=== PATIENT | male | born 1950 | race Native Hawaiian/Other Pacific Islander ===

== ENCOUNTER 2019-04-17 16:23 | Outpatient (CLI) | payer OTHER | END 2019-04-17 23:09 | disposition home or self-care (01) | LOC: RAD 16:23 | DX: Z01.810 Encounter for preprocedural cardiovascular examination (principal); Z01.811 Encounter for preprocedural respiratory examination; Z01.812 Encounter for preprocedural laboratory examination | CPT/HCPCS: 93005 ==

== ENCOUNTER 2019-12-30 08:40 | Outpatient (CLI) | payer OTHER | END 2019-12-31 00:22 | disposition home or self-care (01) | LOC: MRI 08:40 | DX: M54.2 Cervicalgia (principal) ==

== ENCOUNTER 2020-04-30 10:33 | Outpatient (CLI) | payer OTHER | END 2020-04-30 19:34 | disposition home or self-care (01) | LOC: MRI 10:33 | PROVIDERS: ATTEND Physician Assistant Medical | DX: M54.5 Low back pain (principal); G62.9 Polyneuropathy, unspecified ==

== ENCOUNTER 2021-10-12 10:17 | Outpatient (CLI) | payer OTHER | END 2021-10-12 19:20 | disposition home or self-care (01) | LOC: CT 10:17 | PROVIDERS: ATTEND Internal Medicine | DX: U07.1 COVID-19 (principal); R06.02 Shortness of breath ==

== ENCOUNTER 2022-08-04 08:46 | Outpatient (CLI) | payer OTHER | END 2022-08-04 19:11 | disposition home or self-care (01) | LOC: MRI 08:46 | PROVIDERS: ATTEND Otolaryngology | DX: H90.3 Sensorineural hearing loss, bilateral (principal) | CPT/HCPCS: 36415; 82565; 84520; A9576 ==